=== PATIENT | female | born 1950 | race Caucasian/White ===

== ENCOUNTER 2017-01-28 16:02 | Inpatient (IN) | payer MEDICARE, OTHER ==
[~2017-01-28] VITALS: Ht 167.6 cm; Wt 70.0 kg
[~2017-01-28 16:02] MED LIST: ALBU8.5H8 INH; ALPR0.5T6 PO; AMOX1TAB64 PO; CYAN2000 PO; DEXL30CA2 PO; FLUT1DIS3 INH; HYDR-3241 PO; HYDR-3245 PO; HYDR2TAB29 PO; INDO50CA PO; LEVO500T8 PO; LINE600T37 PO; ONDA4TAB10 PO; ONDA4TAB13 SL; OXYC-307 PO; PRED20TA PO; PRED5TAB PO; PROM25TA10 PO; SERT25TA PO; TIOT18CA INH; XANEX PO
[2017-01-28] MEDS ORDERED: SODIUM CHLORIDE 0.9% 1,000ML IVBOLUS ONE (16:30)
[2017-01-28] MEDS ORDERED: SODIUM CHLORIDE FLUSH 10ML SYR IVF ONE (16:30)
[2017-01-28] MEDS ORDERED: ONDANSETRON 2MG/ML, 2ML IVPush ONE (16:30)
[2017-01-28] MEDS ORDERED: ONDANSETRON 2MG/ML, 2ML ONE (16:45)
[2017-01-28] MEDS ORDERED: METOCLOPRAMIDE 5 MG/ML, 2ML IVPush ONE (17:00)
[2017-01-28] MEDS ORDERED: DIPHENHYDRAMINE 50 MG/ML, 1ML IVPush ONE (17:00)
[2017-01-28] MEDS ORDERED: HYDROmorphone 2 MG/ML, 1ML IVPush PRN (17:00)
[2017-01-28] MEDS ORDERED: HYDROmorphone 1 MG/ML, 1ML ONE (17:14)
[2017-01-28] MEDS ORDERED: DIPHENHYDRAMINE 50 MG/ML, 1ML ONE (17:14)
[2017-01-28] MEDS ORDERED: METOCLOPRAMIDE 5 MG/ML, 2ML ONE (17:14)
[2017-01-28 17:33] LABS: HEMATOCRIT 44.4 % (34.6-47.8); HEMOGLOBIN 14.9 g/dL (11.7-16.4)
[2017-01-28] MEDS ORDERED: ALLO100T30 PO (17:41)
[2017-01-28 17:42] LABS: BLOOD UREA NITROGEN 45 mg/dL (7-18)
[2017-01-28 17:46] LABS: ASPARTATE AMINO TRANSFERASE 26 U/L (15-37)
[2017-01-28] MEDS ORDERED: METOCLOPRAMIDE 5 MG/ML, 2ML IVPush PRN (19:00)
[2017-01-28] MEDS ORDERED: hydrALAzine 20 MG/ML, 1ML IVPush PRN (19:00)
[2017-01-28 19:47] VITALS: BP 135/73
[2017-01-28] MEDS: SODIUM CHLORIDE 0.9% 1,000 ML IV SCH (20:12)
[2017-01-28] MEDS: HYDROmorphone 2 MG/ML, 1ML IVPush PRN (21:32)
[2017-01-28] MEDS: HEPARIN 5,000 UNITS/ML, 1ML SQ SCH (23:21)
[2017-01-28] MEDS ORDERED: LORazepam 2 MG/ML, 1ML IVPush ONE (23:30)
[2017-01-29 02:01] VITALS: BP 107/71
[2017-01-29] MEDS: HYDROmorphone 2 MG/ML, 1ML IVPush PRN ×5 (04:00→22:52)
[2017-01-29] MEDS: SODIUM CHLORIDE 0.9% 1,000 ML IV SCH ×2 (04:00→10:10)
[2017-01-29] MEDS: ONDANSETRON 2MG/ML, 2ML IVPush PRN (04:29)
[2017-01-29 05:49] LABS: BLOOD UREA NITROGEN 44 mg/dL (7-18)
[2017-01-29 05:55] LABS: HEMATOCRIT 39.8 % (34.6-47.8); HEMOGLOBIN 13.3 g/dL (11.7-16.4); WHITE BLOOD COUNT 7.9 x10^3/uL (3.4-10)
[2017-01-29 06:18] LABS: ASPARTATE AMINO TRANSFERASE 27 U/L (15-37)
[2017-01-29 07:01] VITALS: BP 113/71
[2017-01-29] MEDS: PANTOPRAZOLE 40 MG IV IVPush SCH (08:01)
[2017-01-29] MEDS: HEPARIN 5,000 UNITS/ML, 1ML SQ SCH ×3 (08:01→23:58)
[2017-01-29 13:04] VITALS: BP 116/65
[2017-01-29] MEDS ORDERED: MAGNESIUM SULFATE PMX 2GM/50ML 50 ML IV ONE (15:30)
[2017-01-29] MEDS ORDERED: POTASSIUM CHLORIDE 40 MEQ in SODIUM CHLORIDE 0.9% 500 ML IV ONE (15:30)
[2017-01-29] MEDS: METOCLOPRAMIDE 5 MG/ML, 2ML IVPush SCH ×2 (16:38→22:52)
[2017-01-29] MEDS: CEFTRIAXONE PMX 1GM/50ML 50 ML IV SCH (18:40)
[2017-01-29 18:48] VITALS: BP 107/67
[2017-01-29] MEDS: POTASSIUM CHLORIDE 40 MEQ in SODIUM CHLORIDE 0.9% 1,000 ML IV SCH (19:19)
[2017-01-29] MEDS ORDERED: DIPHENHYDRAMINE 50 MG/ML, 1ML IVPush ONE (23:30)
[2017-01-30 01:23] VITALS: BP 100/64
[2017-01-30] MEDS: POTASSIUM CHLORIDE 40 MEQ in SODIUM CHLORIDE 0.9% 1,000 ML IV SCH ×3 (05:03→17:36)
[2017-01-30] MEDS: HYDROmorphone 2 MG/ML, 1ML IVPush PRN ×6 (05:09→20:46)
[2017-01-30] MEDS: METOCLOPRAMIDE 5 MG/ML, 2ML IVPush SCH ×3 (05:09→15:54)
[2017-01-30 06:32] LABS: BLOOD UREA NITROGEN 28 mg/dL (7-18)
[2017-01-30 06:33] LABS: HEMATOCRIT 33.7 % (34.6-47.8); HEMOGLOBIN 11.1 g/dL (11.7-16.4); WHITE BLOOD COUNT 6.9 x10^3/uL (3.4-10)
[2017-01-30 07:50] VITALS: BP 100/60
[2017-01-30] MEDS: HEPARIN 5,000 UNITS/ML, 1ML SQ SCH ×2 (07:53→15:53)
[2017-01-30] MEDS: PANTOPRAZOLE 40 MG IV IVPush SCH (07:53)
[2017-01-30 15:15] VITALS: BP 122/64
[2017-01-30] MEDS: CEFTRIAXONE PMX 1GM/50ML 50 ML IV SCH (17:52)
[2017-01-30] MEDS: SODIUM CHLORIDE 0.9% 1,000 ML IV SCH (18:00)
[2017-01-30] MEDS: POTASSIUM ACID PHOSPHATE 500 MG TABLET.SOL PO SCH (18:21)
[2017-01-30 18:31] VITALS: BP 138/73
[2017-01-31] MEDS: POTASSIUM ACID PHOSPHATE 500 MG TABLET.SOL PO SCH ×3 (00:05→11:45)
[2017-01-31] MEDS: HEPARIN 5,000 UNITS/ML, 1ML SQ SCH ×4 (00:05→23:30)
[2017-01-31] MEDS: HYDROmorphone 2 MG/ML, 1ML IVPush PRN ×5 (00:06→21:31)
[2017-01-31] MEDS: DIPHENHYDRAMINE 50 MG CAPSULE PO PRN ×2 (00:57→02:20)
[2017-01-31 01:46] VITALS: BP 103/62
[2017-01-31 06:24] LABS: HEMATOCRIT 28.7 % (34.6-47.8); HEMOGLOBIN 9.7 g/dL (11.7-16.4); WHITE BLOOD COUNT 5.3 x10^3/uL (3.4-10)
[2017-01-31] MEDS: SODIUM CHLORIDE 0.9% 1,000 ML IV SCH (06:36)
[2017-01-31 06:38] LABS: BLOOD UREA NITROGEN 12 mg/dL (7-18)
[2017-01-31] MEDS: ONDANSETRON 2MG/ML, 2ML IVPush PRN (07:35)
[2017-01-31 07:58] VITALS: BP 108/67
[2017-01-31] MEDS ORDERED: MAGNESIUM SULFATE PMX 2GM/50ML 50 ML IV ONE (08:00)
[2017-01-31 15:00] VITALS: BP 109/64
[2017-01-31 15:07] VITALS: BP 109/64
[2017-01-31 19:34] VITALS: BP 125/72
[2017-01-31] MEDS ORDERED: DIPHENHYDRAMINE 50 MG/ML, 1ML IVPush ONE (21:30)
[2017-02-01 01:38] VITALS: BP 109/65
[2017-02-01] MEDS: HYDROmorphone 2 MG/ML, 1ML IVPush PRN ×5 (05:36→23:05)
[2017-02-01 08:16] VITALS: BP 120/70
[2017-02-01] MEDS: HEPARIN 5,000 UNITS/ML, 1ML SQ SCH ×2 (09:25→17:10)
[2017-02-01] MEDS ORDERED: FLUCONAZOLE 100 MG TABLET PO ONE (09:30)
[2017-02-01] MEDS: ONDANSETRON 2MG/ML, 2ML IVPush PRN (09:38)
[2017-02-01] MEDS: SODIUM CHLORIDE 0.9% 1,000 ML IV SCH ×2 (13:43→22:25)
[2017-02-01] MEDS ORDERED: LORazepam 2 MG/ML, 1ML IVPush PRN (14:00)
[2017-02-01] MEDS: DRONABINOL 2.5 MG CAPSULE PO SCH ×2 (14:30→22:25)
[2017-02-01 16:03] VITALS: BP 127/71
[2017-02-01] MEDS ORDERED: NYSTATIN TOPICAL POWDER 15GM TP PRN (16:30)
[2017-02-01 19:30] VITALS: BP 116/72
[2017-02-01] MEDS ORDERED: DRONABINOL 5 MG CAPSULE ONE (21:52)
[2017-02-02] MEDS: HEPARIN 5,000 UNITS/ML, 1ML SQ SCH ×4 (02:00→20:21)
[2017-02-02 02:21] VITALS: BP 120/74
[2017-02-02] MEDS: HYDROmorphone 2 MG/ML, 1ML IVPush PRN ×6 (03:00→23:04)
[2017-02-02 07:32] VITALS: BP 111/68
[2017-02-02] MEDS: DRONABINOL 2.5 MG CAPSULE PO SCH ×2 (08:33→20:21)
[2017-02-02 13:30] VITALS: BP 99/61
[2017-02-02] MEDS: SODIUM CHLORIDE 0.9% 1,000 ML IV SCH (14:25)
[2017-02-02 19:57] VITALS: BP 144/67
[2017-02-03 02:16] VITALS: BP 115/64
[2017-02-03] MEDS: SODIUM CHLORIDE 0.9% 1,000 ML IV SCH ×2 (02:23→17:26)
[2017-02-03] MEDS: HYDROmorphone 2 MG/ML, 1ML IVPush PRN ×2 (02:24→07:39)
[2017-02-03 07:06] VITALS: BP 142/89
[2017-02-03] MEDS: DRONABINOL 2.5 MG CAPSULE PO SCH ×2 (07:39→19:55)
[2017-02-03] MEDS: HEPARIN 5,000 UNITS/ML, 1ML SQ SCH ×3 (07:42→19:55)
[2017-02-03 08:00] VITALS: BP 120/70
[2017-02-03] MEDS: ONDANSETRON 2MG/ML, 2ML IVPush PRN (10:41)
[2017-02-03] MEDS ORDERED: HYDROmorphone 2 MG/ML, 1ML IVPush PRN (13:00)
[2017-02-03 14:00] VITALS: BP 125/80
[2017-02-03] MEDS: HYDROmorphone 1 MG/ML, 1ML IVPush PRN ×2 (17:25→21:38)
[2017-02-03 19:24] VITALS: BP 157/84
[2017-02-04 01:52] VITALS: BP 130/72
[2017-02-04] MEDS: HYDROmorphone 1 MG/ML, 1ML IVPush PRN ×3 (01:59→18:04)
[2017-02-04 02:47] LABS: BLOOD UREA NITROGEN 6 mg/dL (7-18)
[2017-02-04] MEDS ORDERED: MIDAZOLAM 1 MG/ML, 2ML ONE (08:00)
[2017-02-04] MEDS ORDERED: ONDANSETRON 2MG/ML, 2ML ONE (08:20)
[2017-02-04] MEDS ORDERED: PROPOFOL 10 MG/ML, 20ML ONE (08:20)
[2017-02-04] MEDS ORDERED: ONDANSETRON 2MG/ML, 2ML IVPush PRN (08:30)
[2017-02-04] MEDS ORDERED: ACETAMINOPHEN 325 MG TABLET PO PRN (08:30)
[2017-02-04] MEDS ORDERED: HYDROmorphone 1 MG/ML, 1ML IV PRN (08:30)
[2017-02-04] MEDS ORDERED: ACETAMINOPHEN 650 MG/20.3 ML UDC ONE (08:49)
[2017-02-04] MEDS ORDERED: FENTANYL PF 100 MCG/2ML ONE (08:49)
[2017-02-04] MEDS: FENTANYL PF 100 MCG/2ML IV PRN ×2 (08:52→09:07)
[2017-02-04] MEDS: DRONABINOL 2.5 MG CAPSULE PO SCH ×2 (09:00→21:15)
[2017-02-04] MEDS ORDERED: HYDROmorphone 2 MG/ML, 1ML ONE (09:13)
[2017-02-04] MEDS ORDERED: HYDROcodone/APAP 5/325 TABLET PO PRN (09:30)
[2017-02-04] MEDS ORDERED: MAGNESIUM SULFATE PMX 2GM/50ML 50 ML IV ONE (11:00)
[2017-02-04] MEDS: HEPARIN 5,000 UNITS/ML, 1ML SQ SCH ×2 (12:39→21:14)
[2017-02-04] MEDS: SODIUM CHLORIDE 0.9% 1,000 ML IV SCH (12:39)
[2017-02-04 13:35] VITALS: BP 102/67
[2017-02-04] MEDS: HYDROcodone/APAP 5/325 TABLET PO PRN ×2 (15:22→21:15)
[2017-02-04 20:00] VITALS: BP 118/80
[2017-02-05] MEDS: HYDROmorphone 1 MG/ML, 1ML IVPush PRN (00:20)
[2017-02-05 01:53] VITALS: BP 99/54
[2017-02-05] MEDS: SODIUM CHLORIDE 0.9% 1,000 ML IV SCH ×2 (03:21→16:25)
[2017-02-05 04:22] LABS: BLOOD UREA NITROGEN 9 mg/dL (7-18)
[2017-02-05 04:24] LABS: HEMATOCRIT 32.5 % (34.6-47.8); HEMOGLOBIN 10.5 g/dL (11.7-16.4); WHITE BLOOD COUNT 6.4 x10^3/uL (3.4-10)
[2017-02-05] MEDS: HEPARIN 5,000 UNITS/ML, 1ML SQ SCH ×3 (06:00→20:56)
[2017-02-05 07:44] VITALS: BP 104/56
[2017-02-05] MEDS: FAMOTIDINE 40 MG TABLET PO SCH (08:03)
[2017-02-05] MEDS: DRONABINOL 2.5 MG CAPSULE PO SCH ×2 (08:03→20:56)
[2017-02-05] MEDS ORDERED: MAGNESIUM SULFATE PMX 2GM/50ML 50 ML IV ONE (09:30)
[2017-02-05] MEDS ORDERED: DICYCLOMINE 20 MG TABLET PO ONE (12:00)
[2017-02-05] MEDS: HYDROcodone/APAP 5/325 TABLET PO PRN ×2 (12:17→20:56)
[2017-02-05] MEDS: ONDANSETRON 2MG/ML, 2ML IVPush PRN (12:55)
[2017-02-05 15:57] VITALS: BP 105/61
[2017-02-05 20:10] VITALS: BP 114/68
[2017-02-05] MEDS: DICYCLOMINE 20 MG TABLET PO PRN (20:56)
[2017-02-05] MEDS ORDERED: FAMOTIDINE 40 MG TABLET PO SCH (21:00)
[2017-02-06] MEDS: ONDANSETRON 2MG/ML, 2ML IVPush PRN (01:12)
[2017-02-06 01:45] VITALS: BP 106/53
[2017-02-06 04:20] LABS: HEMATOCRIT 31.7 % (34.6-47.8); HEMOGLOBIN 10.5 g/dL (11.7-16.4); WHITE BLOOD COUNT 6.9 x10^3/uL (3.4-10)
[2017-02-06 04:28] LABS: BLOOD UREA NITROGEN 19 mg/dL (7-18)
[2017-02-06] MEDS: HEPARIN 5,000 UNITS/ML, 1ML SQ SCH ×3 (05:13→22:04)
[2017-02-06] MEDS: SODIUM CHLORIDE 0.9% 1,000 ML IV SCH ×2 (05:14→19:18)
[2017-02-06] MEDS: HYDROcodone/APAP 5/325 TABLET PO PRN ×3 (05:19→18:18)
[2017-02-06 08:16] VITALS: BP 98/61
[2017-02-06] MEDS: ACETAMINOPHEN 325 MG TABLET PO PRN ×3 (08:50→22:04)
[2017-02-06] MEDS: DICYCLOMINE 20 MG TABLET PO PRN ×2 (08:54→19:36)
[2017-02-06] MEDS: DRONABINOL 2.5 MG CAPSULE PO SCH (09:00)
[2017-02-06] MEDS: FAMOTIDINE 40 MG TABLET PO SCH (10:18)
[2017-02-06 15:56] VITALS: BP 112/66
[2017-02-06 20:07] VITALS: BP 124/69
[2017-02-07] MEDS: DICYCLOMINE 20 MG TABLET PO PRN (01:29)
[2017-02-07] MEDS: HYDROcodone/APAP 5/325 TABLET PO PRN ×5 (01:30→23:57)
[2017-02-07 01:50] VITALS: BP 117/64
[2017-02-07] MEDS: HEPARIN 5,000 UNITS/ML, 1ML SQ SCH ×3 (05:36→21:34)
[2017-02-07 06:06] LABS: HEMATOCRIT 31.2 % (34.6-47.8); HEMOGLOBIN 10.4 g/dL (11.7-16.4); WHITE BLOOD COUNT 4.9 x10^3/uL (3.4-10)
[2017-02-07 06:13] LABS: BLOOD UREA NITROGEN 15 mg/dL (7-18)
[2017-02-07] MEDS: SODIUM CHLORIDE 0.9% 1,000 ML IV SCH (08:47)
[2017-02-07] MEDS: ACETAMINOPHEN 325 MG TABLET PO PRN ×3 (08:47→22:47)
[2017-02-07] MEDS: ONDANSETRON 2MG/ML, 2ML IVPush PRN (08:47)
[2017-02-07] MEDS: FAMOTIDINE 40 MG TABLET PO SCH (08:50)
[2017-02-07 09:00] VITALS: BP 110/51
[2017-02-07] MEDS ORDERED: TPN PER PHARMACY MC PRN (14:30)
[2017-02-07] MEDS ORDERED: SODIUM CHLORIDE 0.9% 1,000 ML IV SCH (15:30)
[2017-02-07 16:00] VITALS: BP 107/60
[2017-02-07] MEDS ORDERED: DEXTROSE 10% 500 ML IV PRN (17:00)
[2017-02-07] MEDS ORDERED: DEXTROSE 70% IV SCH (17:00)
[2017-02-07] MEDS ORDERED: FAT EMULSIONS IV SCH (17:00)
[2017-02-07] MEDS ORDERED: AMINO ACID 10% IV SCH (17:00)
[2017-02-07] MEDS ORDERED: DEXTROSE 50%, 50ML SYRINGE IVPush PRN (17:00)
[2017-02-07] MEDS ORDERED: [UNRECOGNIZED DRUG - OTHER] IV SCH (17:00)
[2017-02-07] MEDS: FILTER, DISP 1.2 MICRON FOR TPN/PVN IV PRN (17:16)
[2017-02-07 20:55] VITALS: BP 104/62
[2017-02-07] MEDS: INSULIN REGULAR LOW DOSE Q6H X 48HRS SQ-INSULIN SCH (21:00)
[2017-02-07 23:59] VITALS: BP 102/57
[2017-02-08] MEDS: HYDROcodone/APAP 5/325 TABLET PO PRN ×4 (01:00→22:38)
[2017-02-08] MEDS: INSULIN REGULAR LOW DOSE Q6H X 48HRS SQ-INSULIN SCH ×4 (03:00→21:00)
[2017-02-08] MEDS: HEPARIN 5,000 UNITS/ML, 1ML SQ SCH ×3 (04:57→22:38)
[2017-02-08 05:02] LABS: HEMATOCRIT 30.1 % (34.6-47.8); HEMOGLOBIN 9.9 g/dL (11.7-16.4); WHITE BLOOD COUNT 4.6 x10^3/uL (3.4-10)
[2017-02-08 05:29] LABS: ASPARTATE AMINO TRANSFERASE 13 U/L (15-37); BLOOD UREA NITROGEN 16 mg/dL (7-18)
[2017-02-08 07:45] VITALS: BP 105/55
[2017-02-08] MEDS: ONDANSETRON 2MG/ML, 2ML IVPush PRN (09:44)
[2017-02-08] MEDS: ACETAMINOPHEN 325 MG TABLET PO PRN (09:49)
[2017-02-08 13:44] VITALS: BP 109/60
[2017-02-08] MEDS: FILTER, DISP 1.2 MICRON FOR TPN/PVN IV PRN (16:23)
[2017-02-08] MEDS ORDERED: DEXTROSE 70% IV SCH (17:00)
[2017-02-08] MEDS ORDERED: AMINO ACID 10% IV SCH (17:00)
[2017-02-08] MEDS ORDERED: FAT EMULSIONS IV SCH (17:00)
[2017-02-08] MEDS ORDERED: [UNRECOGNIZED DRUG - OTHER] IV SCH (17:00)
[2017-02-08 19:28] VITALS: BP 129/76
[2017-02-09] MEDS: INSULIN REGULAR LOW DOSE Q6H X 48HRS SQ-INSULIN SCH ×3 (03:00→14:39)
[2017-02-09 03:18] VITALS: BP 113/58
[2017-02-09] MEDS: HYDROcodone/APAP 5/325 TABLET PO PRN ×2 (03:32→08:04)
[2017-02-09] MEDS: ONDANSETRON 2MG/ML, 2ML IVPush PRN ×2 (03:44→23:55)
[2017-02-09 05:48] LABS: BLOOD UREA NITROGEN 18 mg/dL (7-18)
[2017-02-09] MEDS: HEPARIN 5,000 UNITS/ML, 1ML SQ SCH ×4 (06:27→22:03)
[2017-02-09 06:30] LABS: HEMATOCRIT 32.5 % (34.6-47.8); HEMOGLOBIN 10.7 g/dL (11.7-16.4); WHITE BLOOD COUNT 6.2 x10^3/uL (3.4-10)
[2017-02-09 06:34] LABS: DIFF TOTAL CELLS COUNTED 100 CELL DIFF
[2017-02-09 06:37] LABS: ANISOCYTOSIS 1+; VERIFY COUNTS? YES
[2017-02-09 06:46] VITALS: BP 109/62
[2017-02-09] MEDS ORDERED: [UNRECOGNIZED DRUG - OTHER] IV SCH ×4 (12:30→18:00)
[2017-02-09] MEDS ORDERED: DEXTROSE 70% IV SCH ×4 (12:30→18:00)
[2017-02-09] MEDS ORDERED: AMINO ACID 10% IV SCH ×4 (12:30→18:00)
[2017-02-09] MEDS ORDERED: FAT EMULSIONS IV SCH ×4 (12:30→18:00)
[2017-02-09 13:59] VITALS: BP 121/72
[2017-02-09] MEDS: ACETAMINOPHEN 325 MG TABLET PO PRN ×2 (14:31→21:10)
[2017-02-09] MEDS ORDERED: FILTER, DISP 1.2 MICRON FOR TPN/PVN IV PRN (17:00)
[2017-02-09] MEDS: OXYcodone 5 MG/5 ML ORAL.SOL UDC PO PRN ×2 (17:05→23:54)
[2017-02-09 19:05] VITALS: BP 106/65
[2017-02-09] MEDS: INSULIN REGULAR LOW DOSE QDAY SQ-INSULIN SCH (21:00)
[2017-02-10 01:12] VITALS: BP 120/73
[2017-02-10] MEDS: HEPARIN 5,000 UNITS/ML, 1ML SQ SCH ×3 (05:41→22:13)
[2017-02-10] MEDS: ACETAMINOPHEN 325 MG TABLET PO PRN (06:02)
[2017-02-10] MEDS: ONDANSETRON 2MG/ML, 2ML IVPush PRN ×2 (06:03→12:39)
[2017-02-10 07:51] VITALS: BP 114/70
[2017-02-10] MEDS: OXYcodone 5 MG/5 ML ORAL.SOL UDC PO PRN ×3 (08:12→22:11)
[2017-02-10 08:48] LABS: HEMATOCRIT 32.9 % (34.6-47.8); HEMOGLOBIN 10.8 g/dL (11.7-16.4); WHITE BLOOD COUNT 5.7 x10^3/uL (3.4-10)
[2017-02-10 08:51] LABS: BLOOD UREA NITROGEN 28 mg/dL (7-18)
[2017-02-10 08:52] LABS: ASPARTATE AMINO TRANSFERASE 17 U/L (15-37)
[2017-02-10] MEDS ORDERED: OXYcodone 5 MG/5 ML ORAL.SOL UDC PO ONE (09:00)
[2017-02-10] MEDS ORDERED: SODIUM CHLORIDE 0.45% 500 ML IV ONE (11:00)
[2017-02-10 14:35] LABS: BLOOD UREA NITROGEN 27 mg/dL (7-18)
[2017-02-10 15:14] VITALS: BP 134/78
[2017-02-10] MEDS ORDERED: [UNRECOGNIZED DRUG - OTHER] IV SCH (17:00)
[2017-02-10] MEDS ORDERED: DEXTROSE 70% IV SCH (17:00)
[2017-02-10] MEDS ORDERED: FAT EMULSIONS IV SCH (17:00)
[2017-02-10] MEDS ORDERED: FILTER, DISP 1.2 MICRON FOR TPN/PVN IV PRN (17:00)
[2017-02-10] MEDS ORDERED: AMINO ACID 10% IV SCH (17:00)
[2017-02-10 18:35] VITALS: BP 127/65
[2017-02-10] MEDS: INSULIN REGULAR LOW DOSE QDAY SQ-INSULIN SCH (21:00)
[2017-02-11] MEDS: ONDANSETRON 2MG/ML, 2ML IVPush PRN ×2 (01:42→08:26)
[2017-02-11 04:12] VITALS: BP 131/71
[2017-02-11] MEDS: HYDROcodone/APAP 5/325 TABLET PO PRN ×2 (04:15→08:27)
[2017-02-11] MEDS: DICYCLOMINE 20 MG TABLET PO PRN ×2 (04:30→08:26)
[2017-02-11] MEDS: HEPARIN 5,000 UNITS/ML, 1ML SQ SCH ×3 (06:00→23:08)
[2017-02-11] MEDS: OXYcodone 5 MG/5 ML ORAL.SOL UDC PO PRN ×4 (06:07→21:05)
[2017-02-11 06:39] LABS: HEMATOCRIT 32.2 % (34.6-47.8); HEMOGLOBIN 10.7 g/dL (11.7-16.4); WHITE BLOOD COUNT 5.7 x10^3/uL (3.4-10)
[2017-02-11 06:48] LABS: ASPARTATE AMINO TRANSFERASE 52 U/L (15-37); BLOOD UREA NITROGEN 30 mg/dL (7-18)
[2017-02-11 06:58] VITALS: BP 114/66
[2017-02-11] MEDS ORDERED: OXYcodone 5 MG/5 ML ORAL.SOL UDC PO PRN (11:30)
[2017-02-11] MEDS ORDERED: OXYcodone 5 MG/5 ML ORAL.SOL UDC ONE (11:47)
[2017-02-11] MEDS: KETOROLAC 30 MG/1 ML IVPush PRN ×2 (11:51→18:44)
[2017-02-11] MEDS: INSULIN REGULAR LOW DOSE QDAY SQ-INSULIN SCH (11:53)
[2017-02-11 14:57] VITALS: BP 87/53
[2017-02-11] MEDS: ONDANSETRON 2MG/ML, 2ML IVPush SCH ×2 (14:58→21:05)
[2017-02-11] MEDS: SODIUM CHLORIDE 0.9% 1,000 ML IV SCH (16:00)
[2017-02-11] MEDS ORDERED: SODIUM CHLORIDE 0.9% 1,000 ML IV SCH (16:00)
[2017-02-11] MEDS ORDERED: DEXTROSE 70% IV SCH (17:00)
[2017-02-11] MEDS ORDERED: AMINO ACID 10% IV SCH (17:00)
[2017-02-11] MEDS ORDERED: FAT EMULSIONS IV SCH (17:00)
[2017-02-11] MEDS ORDERED: [UNRECOGNIZED DRUG - OTHER] IV SCH (17:00)
[2017-02-11 20:03] VITALS: BP 106/61
[2017-02-12 01:45] VITALS: BP 106/63
[2017-02-12] MEDS: ONDANSETRON 2MG/ML, 2ML IVPush SCH ×4 (03:45→21:35)
[2017-02-12] MEDS: SODIUM CHLORIDE 0.9% 1,000 ML IV SCH (03:45)
[2017-02-12 04:45] LABS: ASPARTATE AMINO TRANSFERASE 24 U/L (15-37); BLOOD UREA NITROGEN 36 mg/dL (7-18)
[2017-02-12 04:47] LABS: HEMATOCRIT 29.5 % (34.6-47.8); HEMOGLOBIN 9.8 g/dL (11.7-16.4); WHITE BLOOD COUNT 4.5 x10^3/uL (3.4-10)
[2017-02-12 08:00] VITALS: BP 112/67
[2017-02-12] MEDS: HEPARIN 5,000 UNITS/ML, 1ML SQ SCH ×3 (08:51→23:44)
[2017-02-12] MEDS: KETOROLAC 30 MG/1 ML IVPush PRN ×2 (08:52→18:18)
[2017-02-12] MEDS: INSULIN REGULAR LOW DOSE QDAY SQ-INSULIN SCH (10:45)
[2017-02-12] MEDS: OXYcodone 5 MG/5 ML ORAL.SOL UDC PO PRN ×2 (13:49→21:36)
[2017-02-12 14:14] VITALS: BP 91/51
[2017-02-12] MEDS ORDERED: SODIUM CHLORIDE 0.9% 1,000 ML IV SCH ×2 (16:00→17:00)
[2017-02-12] MEDS ORDERED: DEXTROSE 70% IV SCH (17:00)
[2017-02-12] MEDS ORDERED: [UNRECOGNIZED DRUG - OTHER] IV SCH (17:00)
[2017-02-12] MEDS ORDERED: FAT EMULSIONS IV SCH (17:00)
[2017-02-12] MEDS ORDERED: AMINO ACID 10% IV SCH (17:00)
[2017-02-12] MEDS: FILTER, DISP 1.2 MICRON FOR TPN/PVN IV PRN (17:56)
[2017-02-12 18:52] VITALS: BP 118/56
[2017-02-12] MEDS ORDERED: hydrALAzine 20 MG/ML, 1ML IVPush PRN (20:00)
[2017-02-12] MEDS ORDERED: DEXTROSE 50%, 50ML SYRINGE IVPush PRN (20:00)
[2017-02-12] MEDS ORDERED: DEXTROSE 10% 500 ML IV PRN (20:00)
[2017-02-12] MEDS ORDERED: ACETAMINOPHEN 325 MG TABLET PO PRN (20:00)
[2017-02-13 02:00] VITALS: BP 115/67
[2017-02-13] MEDS: OXYcodone 5 MG/5 ML ORAL.SOL UDC PO PRN ×3 (04:08→19:53)
[2017-02-13] MEDS: ONDANSETRON 2MG/ML, 2ML IVPush SCH ×4 (04:08→22:05)
[2017-02-13 04:54] LABS: HEMATOCRIT 28.7 % (34.6-47.8); HEMOGLOBIN 9.5 g/dL (11.7-16.4); WHITE BLOOD COUNT 4.6 x10^3/uL (3.4-10)
[2017-02-13 05:02] LABS: ASPARTATE AMINO TRANSFERASE 20 U/L (15-37); BLOOD UREA NITROGEN 28 mg/dL (7-18)
[2017-02-13 08:00] VITALS: BP 134/68
[2017-02-13] MEDS: HEPARIN 5,000 UNITS/ML, 1ML SQ SCH ×3 (08:54→22:46)
[2017-02-13] MEDS: KETOROLAC 30 MG/1 ML IVPush PRN (09:02)
[2017-02-13] MEDS: INSULIN REGULAR LOW DOSE QDAY SQ-INSULIN SCH (11:53)
[2017-02-13] MEDS ORDERED: FAT EMULSIONS IV SCH (17:00)
[2017-02-13] MEDS ORDERED: AMINO ACID 10% IV SCH (17:00)
[2017-02-13] MEDS ORDERED: DEXTROSE 70% IV SCH (17:00)
[2017-02-13] MEDS ORDERED: [UNRECOGNIZED DRUG - OTHER] IV SCH (17:00)
[2017-02-13 17:24] VITALS: BP 124/71
[2017-02-13] MEDS: FILTER, DISP 1.2 MICRON FOR TPN/PVN IV PRN (18:27)
[2017-02-13 19:30] VITALS: BP 156/79
[2017-02-14] MEDS: OXYcodone 5 MG/5 ML ORAL.SOL UDC PO PRN ×3 (00:26→14:06)
[2017-02-14 01:30] VITALS: BP 120/69
[2017-02-14] MEDS: ONDANSETRON 2MG/ML, 2ML IVPush SCH ×2 (03:31→10:28)
[2017-02-14 03:53] LABS: HEMOGLOBIN 9.4 g/dL (11.7-16.4); WHITE BLOOD COUNT 4.6 x10^3/uL (3.4-10)
[2017-02-14 04:05] LABS: BLOOD UREA NITROGEN 22 mg/dL (7-18)
[2017-02-14 06:55] VITALS: BP 116/67
[2017-02-14] MEDS: HEPARIN 5,000 UNITS/ML, 1ML SQ SCH (08:26)
[2017-02-14] MEDS ORDERED: OXYC5SOL8 PO (09:46)
[2017-02-14] MEDS ORDERED: TRAM50TA2 PO (09:46)
[2017-02-14] MEDS ORDERED: MAGNESIUM SULFATE PMX 2GM/50ML 50 ML IV ONE (10:00)
[2017-02-14] MEDS: INSULIN REGULAR LOW DOSE QDAY SQ-INSULIN SCH (11:53)
[2017-02-14 13:47] VITALS: BP 122/70
[2017-02-20] MEDS ORDERED: [UNRECOGNIZED DRUG - CODE] EPIDCONT (22:14)
== END 2017-02-14 15:30 | disposition home health service (06) | DRG 438 ==
LOC: ED 18:15 → EDIP 18:16 → ED 18:39 → 3NE 19:29 → DCLOUNGE 02-14 15:00
PROVIDERS: ADMIT Surgery; ATTEND Internal Medicine
PROC: 02HV33Z Insertion of Infusion Device into Superior Vena Cava, Percutaneous Approach (ICD-10-PCS; 2017-02-02)
PROC: B548ZZA Ultrasonography of Superior Vena Cava, Guidance (ICD-10-PCS; 2017-02-02)
PROC: 0DJD8ZZ Inspection of Lower Intestinal Tract, Via Natural or Artificial Opening Endoscopic (ICD-10-PCS; 2017-02-04)
PROC: 0DB68ZX Excision of Stomach, Via Natural or Artificial Opening Endoscopic, Diagnostic (ICD-10-PCS; principal; 2017-02-04 08:00)
DX: K85.90 Acute pancreatitis without necrosis or infection, unspecified (principal); N17.0 Acute kidney failure with tubular necrosis; E44.0 Moderate protein-calorie malnutrition; K50.10 Crohn's disease of large intestine without complications; E83.42 Hypomagnesemia; E87.5 Hyperkalemia; E87.1 Hypo-osmolality and hyponatremia; N39.0 Urinary tract infection, site not specified; J44.9 Chronic obstructive pulmonary disease, unspecified; K29.60 Other gastritis without bleeding; G89.29 Other chronic pain; E87.6 Hypokalemia; N18.2 Chronic kidney disease, stage 2 (mild); I12.9 Hypertensive chronic kidney disease with stage 1 through stage 4 chronic kidney disease, or unspecified chronic kidney disease; D63.8 Anemia in other chronic diseases classified elsewhere; E86.0 Dehydration; F41.9 Anxiety disorder, unspecified; K59.03 Drug induced constipation; M10.9 Gout, unspecified; K59.9 Functional intestinal disorder, unspecified; T40.605A Adverse effect of unspecified narcotics, initial encounter; Y92.89 Other specified places as the place of occurrence of the external cause; Z68.24 Body mass index [BMI] 24.0-24.9, adult; Z90.49 Acquired absence of other specified parts of digestive tract; Z93.2 Ileostomy status; Z93.3 Colostomy status; Z79.899 Other long term (current) drug therapy
CPT/HCPCS: 36415; 36569; 74000; 74020; 74176; 76937; 77001; 80048; 80053; 81001; 81003; 82040; 82150; 82306; 82607; 82962; 83690; 83735; 84100; 84134; 84478; 85025; 85610; 87086; 87106; 88305; 93005; 96361; 96374; 96375; J0610; J0696; J1170; J1644; J1885; J2250; J2405; J2704; J3010; J3475; J3480; Q0167; C1751; C9113; J1200; J2060; J2765; J3420; J7030; J7040; S0028

== ENCOUNTER → 2019-03-06 | Outpatient (CLI) | payer MEDICARE ==
[~2019-03-06] MED LIST changes: +ALLO100T30 PO; +BUPIVACAINE; +CALC0.25 PO; +CALC0.5C9 PO; +CALC200T24 PO; +CHOL100015 PO; +CHOL400T2 PO; +DICY20TA3 PO; -INDO50CA PO; +INDO50CA15 PO; +LINE600T12 PO; -LINE600T37 PO; +NORT10CA PO; +ONDA8TAB9 PO; +OXYC-432 PO; +OXYC5SOL8 PO; +TRAM50TA2 PO; +[UNRECOGNIZED DRUG - CODE] EPIDCONT; +[UNRECOGNIZED DRUG - CODE] PO; +hydromorphone; +vitamin b12 INJ
== END | disposition home or self-care (01) ==
LOC: STAR 11:17
PROVIDERS: ATTEND Internal Medicine Geriatric Medicine
DX: K22.5 Diverticulum of esophagus, acquired (principal)
CPT/HCPCS: 93005

== ENCOUNTER 2019-03-13 08:17 | Day surgery (SDC) | payer MEDICARE ==
[~2019-03-13] VITALS: Ht 160 cm; Wt 64.6 kg
[2019-03-13 09:01] VITALS: BP 127/78
[2019-03-13] MEDS ORDERED: PROPOFOL 50 ML ONE (09:17)
[2019-03-13] MEDS ORDERED: FENTANYL PF 100 MCG/2ML ONE (09:18)
[2019-03-13] MEDS ORDERED: LACTATED RINGERS 1,000 ML IV SCH (09:33)
[2019-03-13] MEDS ORDERED: SUCCINYLCHOLINE 20 MG/ML, 10ML ONE (09:42)
[2019-03-13] MEDS ORDERED: HYDROmorphone 2 MG/ML, 1ML IVPush PRN (10:30)
[2019-03-13] MEDS ORDERED: METOPROLOL 1 MG/ML, 5ML IV PRN (10:30)
[2019-03-13] MEDS ORDERED: ACETAMINOPHEN 325 MG TABLET PO PRN (10:30)
[2019-03-13] MEDS ORDERED: OXYcodone 5 MG/5 ML ORAL.SOL UDC PO PRN (10:30)
[2019-03-13] MEDS ORDERED: PROMETHAZINE 25 MG/ML, 1ML IV PRN (10:30)
[2019-03-13] MEDS ORDERED: hydrALAzine 20 MG/ML, 1ML IV PRN (10:30)
[2019-03-13] MEDS ORDERED: FENTANYL PF 100 MCG/2ML IV PRN (10:30)
[2019-03-13] MEDS ORDERED: MIDAZOLAM 1 MG/ML, 2ML IV PRN (10:30)
[2019-03-13] MEDS ORDERED: MEPERIDINE/PF 25MG/ML,1ML IVPush PRN (10:30)
[2019-03-13] MEDS ORDERED: ONDANSETRON 2MG/ML, 2ML ONE (10:54)
[2019-03-13] MEDS ORDERED: DEXAMETHASONE 4 MG/ML, 1ML ONE (10:54)
[2019-03-13] MEDS ORDERED: PROPOFOL 10 MG/ML, 20ML ONE (10:54)
[2019-03-13] MEDS ORDERED: OXYcodone 5 MG/5 ML ORAL.SOL UDC ONE (11:17)
== END 2019-03-13 12:45 | disposition home or self-care (01) ==
LOC: OUT 08:17
PROVIDERS: ATTEND Internal Medicine Geriatric Medicine
DX: K22.5 Diverticulum of esophagus, acquired (principal); K50.90 Crohn's disease, unspecified, without complications; Z87.891 Personal history of nicotine dependence; Z88.2 Allergy status to sulfonamides; Z88.5 Allergy status to narcotic agent
CPT/HCPCS: 43180; J0330; J1100; J2405; J2704; J3010; J7120

== ENCOUNTER 2019-09-18 06:47 | Day surgery (SDC) | payer MEDICARE ==
[~2019-09-18] VITALS: Ht 160 cm; Wt 60.0 kg
[2019-09-18 07:08] VITALS: BP 128/79
[2019-09-18] MEDS ORDERED: CHLORHEXIDINE 15 ML UDC MM ONE (07:30)
[2019-09-18] MEDS ORDERED: SODIUM CHLORIDE 0.9% 1,000 ML IV SCH (07:30)
[2019-09-18 08:43] LABS: ALBUMIN 3.8 g/dL (3.4-5.0); ANION GAP 9 mmol/L (5-15); CALCIUM 9.2 mg/dL (8.5-10.1); CHLORIDE 102 mmol/L (98-107)
[2019-09-18 08:46] LABS: ALANINE AMINOTRANSFERASE 34 U/L (12-78); ALKALINE PHOSPHATASE 102 U/L (45-117); BILIRUBIN,TOTAL 0.7 mg/dL (0.2-1.0); CREATININE 1.89 mg/dL (0.55-1.02); TOTAL PROTEIN 7.9 g/dL (6.4-8.2)
[2019-09-18] MEDS ORDERED: FENTANYL PF 100 MCG/2ML ONE ×3 (08:50→12:17)
[2019-09-18] MEDS ORDERED: MIDAZOLAM 1 MG/ML, 2ML ONE (08:50)
[2019-09-18] MEDS ORDERED: ONDANSETRON 2MG/ML, 2ML ONE (09:39)
[2019-09-18] MEDS ORDERED: SUCCINYLCHOLINE 20 MG/ML, 10ML ONE (09:39)
[2019-09-18] MEDS ORDERED: CEFAZOLIN 1,000 MG ONE (09:39)
[2019-09-18] MEDS ORDERED: PROPOFOL 10 MG/ML, 20ML ONE (09:39)
[2019-09-18] MEDS ORDERED: ROCURONIUM 10MG/ML,5ML ONE (09:39)
[2019-09-18] MEDS ORDERED: DEXAMETHASONE 4 MG/ML, 1ML ONE (09:39)
[2019-09-18] MEDS ORDERED: NEOSTIGMINE 1 MG/ML, 10ML ONE (09:39)
[2019-09-18] MEDS ORDERED: GLYCOPYRROLATE 0.2MG/1ML, 5ML ONE (09:39)
[2019-09-18] MEDS: FENTANYL PF 100 MCG/2ML IV PRN ×2 (10:24→10:33)
[2019-09-18] MEDS ORDERED: SODIUM CHLORIDE 0.9%, 500ML IVBOLUS ONE (12:30)
[2019-09-18] MEDS ORDERED: FENTANYL PF 100 MCG/2ML IVPush PRN (12:30)
== END 2019-09-18 14:55 | disposition home or self-care (01) ==
LOC: OUT 06:47 → EDSTATUS 08:45 → OUT 14:55
PROVIDERS: ATTEND Internal Medicine Geriatric Medicine
DX: K22.5 Diverticulum of esophagus, acquired (principal); K50.90 Crohn's disease, unspecified, without complications; N18.3 Chronic kidney disease, stage 3 (moderate); Z87.891 Personal history of nicotine dependence; Z88.2 Allergy status to sulfonamides; Z88.5 Allergy status to narcotic agent
CPT/HCPCS: 36415; 43180; 80053; 93005; J0330; J1100; J2250; J2405; J2704; J3010; J7030; U0001; J0690; J2710

== ENCOUNTER 2020-03-03 14:02 | Emergency (ER) | payer MEDICARE ==
[~2020-03-03] VITALS: Ht 162.6 cm; Wt 58.0 kg
[~2020-03-03 14:02] MED LIST changes: -OXYC-432 PO; +OXYC1TAB18 PO
--- NOTE | 2020-03-03 14:25 | NUR ---
PT C/O ABD PAIN, NAUSEA, AND FEELING OF FULLNESS IN STOMACHE X 1 MONTH. PT STATES SHE HAS PAIN WITH EATING AND FEELS LIKE HER STOMACH ISN'T EMPTYING.
--- NOTE | 2020-03-03 14:27 | NUR ---
LAB DRAW COMPLETE
[2020-03-03] MEDS ORDERED: FAMOTIDINE 20 MG/2 ML IV ONE (14:30)
[2020-03-03] MEDS ORDERED: PLEASE ENTER HEIGHT AND WEIGHT MC SCH (14:30)
[2020-03-03] MEDS ORDERED: HYDROmorphone 2 MG/ML, 1ML IVPush PRN (14:30)
[2020-03-03] MEDS ORDERED: SODIUM CHLORIDE 0.9% 1,000ML IVBOLUS ONE (14:30)
[2020-03-03] MEDS ORDERED: ONDANSETRON 2MG/ML, 2ML IVPush ONE (14:30)
[2020-03-03] MEDS ORDERED: HYDROmorphone 1 MG/ML, 1ML INJ ONE (14:34)
[2020-03-03] MEDS ORDERED: ONDANSETRON 2MG/ML, 2ML ONE (14:34)
[2020-03-03 14:37] LABS: BASOPHILS % (AUTO) 1 % (0-1); EOSINOPHILS % (AUTO) 2 % (1-7); LYMPHOCYTES % (AUTO) 15 % (22-44); MEAN CORPUSCULAR HEMOGLOBIN 29.8 pg (27.0-34.8); MEAN CORPUSCULAR HGB CONC 32.7 g/dL (32.4-35.8); MEAN PLATELET VOLUME 8.9 fL (7.4-10.4); MONOCYTES % (AUTO) 7 % (2-9); NEUTROPHILS % (AUTO) 76 % (42-75); PLATELET COUNT 190 x10^3/uL (130-400); RED BLOOD COUNT 4.25 x10^6/uL (3.82-5.3); RED CELL DISTRIBUTION WIDTH 14.7 % (9.6-15.2)
[2020-03-03 14:46] LABS: ALANINE AMINOTRANSFERASE 24 U/L (12-78); ALBUMIN 4.1 g/dL (3.4-5.0); ANION GAP 8 mmol/L (5-15); CALCIUM 9.5 mg/dL (8.5-10.1); CHLORIDE 102 mmol/L (98-107); CREATININE 1.89 mg/dL (0.55-1.02); MD NO
[2020-03-03 14:49] LABS: ALKALINE PHOSPHATASE 103 U/L (45-117); BILIRUBIN,TOTAL 0.8 mg/dL (0.2-1.0); TOTAL PROTEIN 8.1 g/dL (6.4-8.2)
[2020-03-03] MEDS ORDERED: FAMOTIDINE 20 MG/2 ML ONE (14:49)
--- NOTE | 2020-03-03 14:57 | NUR ---
BREAK RN: PT TO IMAGING AT THIS TIME. SHAY.
[2020-03-03 16:08] VITALS: BP 137/54
--- NOTE | 2020-03-03 16:33 | NUR ---
PT REC'VD DISCHARGE INSTRUCTIONS AND EDUCATION. PT HAD NO FURTHER QUESTIONS. PT AMBULATED TO DC AREA, STEADY GAIT.
== END 2020-03-03 16:36 | disposition home or self-care (01) ==
LOC: ED 14:35
DX: R10.13 Epigastric pain (principal); R10.84 Generalized abdominal pain; R11.0 Nausea; R30.0 Dysuria; K50.90 Crohn's disease, unspecified, without complications; Z87.891 Personal history of nicotine dependence; Z93.2 Ileostomy status
CPT/HCPCS: 36415; 74176; 80053; 83690; 85025; 96361; 96374; 96375; 99284; J1170; J2405; J7030

== ENCOUNTER → 2020-03-12 | Outpatient (CLI) | payer MEDICARE | END | disposition home or self-care (01) | LOC: RAD 10:36 | PROVIDERS: ATTEND Internal Medicine Gastroenterology | DX: R10.84 Generalized abdominal pain (principal) | CPT/HCPCS: 78264; A9541 ==